=== PATIENT | female | born 1985 | race Caucasian/White ===

== ENCOUNTER 2017-03-24 09:02 | Outpatient (CLI) | payer BC ==
[~2017-03-24] VITALS: Ht 170.2 cm; Wt 80.9 kg
[~2017-03-24 09:02] MED LIST: MOTRIN 600600 MG/TAB PO; PERCOCET 325 MG1 TA2 PO; PRENATAL1 TA1 PO
[2017-03-24 09:15] VITALS: BP 126/70; PULSE 82; TEMP 98
[2017-03-24 09:21] VITALS: BP 126/70; PULSE 82; TEMP 98
[2017-03-24 10:18] VITALS: BP 111/66; PULSE 98
[2017-03-24 10:45] VITALS: BP 109/66; PULSE 100
== END 2017-03-24 10:50 | disposition home or self-care (01) ==
LOC: LDRO 09:02
DX: Z34.83 Encounter for supervision of other normal pregnancy, third trimester (principal); Z3A.31 31 weeks gestation of pregnancy

== ENCOUNTER 2017-05-10 01:17 | Inpatient (IN) | payer BC ==
[2017-05-10] VITALS (19 sets, daily range): BP systolic 95–130; BP diastolic 44–78; PULSE 75–101; TEMP 97.5–98.2
[~2017-05-10] VITALS: Ht 170.2 cm; Wt 82.7 kg
[2017-05-10 02:05] LABS: HEMATOCRIT 38.1 % (37.0-47.0); HEMOGLOBIN 12.6 g/dl (12.5-16.0); MEAN CELL VOLUME 88 fl (80.0-100.0); MEAN CORPUSCULAR HEMOGLOBIN 29 pg (27.0-31.0); MEAN CORPUSCULAR HGB CONC 33 g/dl (33.0-37.0); MEAN PLATELET VOLUME 10.7 fl (7.4-10.4); PLATELET COUNT 168 K/mm3 (130-400); RED BLOOD COUNT 4.34 M/mm3 (4.10-5.30); REDCELL DISTRIBUTION WIDTH-CV 13.7 % (11.5-14.5); WHITE BLOOD COUNT 13.8 K/mm3 (4.8-10.8)
[2017-05-10 02:07] LABS: ADD PATHOLOGY DIFF REVIEW NO
[2017-05-10 02:19] LABS: BAND 17 % (0-10); EOSINOPHIL 1 % (0-4); METAMYELOCYTE 1 % (0-0); NEUTROPHILS 55 % (42.0-75.2); PLATELET ESTIMATE NORMAL (NORMAL); TOTAL CELLS COUNTED 100
[2017-05-11 07:37] LABS: MEAN CELL VOLUME 89 fl (80.0-100.0); MEAN CORPUSCULAR HGB CONC 32 g/dl (33.0-37.0); MEAN PLATELET VOLUME 10.7 fl (7.4-10.4); PLATELET COUNT 141 K/mm3 (130-400); RED BLOOD COUNT 3.78 M/mm3 (4.10-5.30); REDCELL DISTRIBUTION WIDTH-CV 13.7 % (11.5-14.5); WHITE BLOOD COUNT 12.2 K/mm3 (4.8-10.8)
[2017-05-11 07:40] LABS: ADD PATHOLOGY DIFF REVIEW NO; HEMATOCRIT 33.5 % (37.0-47.0); HEMOGLOBIN 10.7 g/dl (12.5-16.0); MEAN CORPUSCULAR HEMOGLOBIN 28 pg (27.0-31.0)
[2017-05-11 07:52] LABS: ADJUSTED CALCIUM 9.1 mg/dL (8.4-10.2); ALBUMIN 2.8 gm/dL (3.5-5.0); BILIRUBIN,TOTAL 0.3 mg/dL (0.0-1.0); CALCIUM 8.1 mg/dL (8.4-10.2); CREATININE, serum 0.78 mg/dL (0.52-1.25); POTASSIUM 4.2 mmol/L (3.4-5.0); TOTAL PROTEIN 5.8 gm/dL (6.4-8.2)
[2017-05-11] MEDS ORDERED: PERCOCET 325 MG1 TA2 PO (08:16)
[2017-05-11] MEDS ORDERED: IBU600 MG PO (08:16)
[2017-05-11 08:25] LABS: BAND 13 % (0-10); NEUTROPHILS 67 % (42.0-75.2); PLATELET ESTIMATE DECREASED (NORMAL); TOTAL CELLS COUNTED 100
[2017-05-11 08:30] VITALS: BP 118/67; PULSE 83; TEMP 98.4
[2017-05-11 16:15] VITALS: BP 107/62; PULSE 75; TEMP 97.8
[2017-05-11 20:00] VITALS: BP 110/66; PULSE 78; TEMP 97.8
[2017-05-12 06:50] VITALS: BP 111/62; PULSE 77; TEMP 98.5
== END 2017-05-12 11:35 | disposition home or self-care (01) | DRG 766 ==
LOC: LDRO 01:17 → OB 01:34 → LDR 01:34 → OB 03:40
PROVIDERS: Obstetrics & Gynecology
PROC: 10D00Z1 Extraction of Products of Conception, Low, Open Approach (ICD-10-PCS; principal; 2017-05-10)
PROC: 0U960ZZ Drainage of Left Fallopian Tube, Open Approach (ICD-10-PCS; 2017-05-10)
DX: O34.211 Maternal care for low transverse scar from previous cesarean delivery (principal); O34.83 Maternal care for other abnormalities of pelvic organs, third trimester; N83.8 Other noninflammatory disorders of ovary, fallopian tube and broad ligament; O32.1XX0 Maternal care for breech presentation, not applicable or unspecified; O77.0 Labor and delivery complicated by meconium in amniotic fluid; Z3A.39 39 weeks gestation of pregnancy; Z37.0 Single live birth
CPT/HCPCS: J0690; J1885; J2175; J2270; J2405; J2590; J7120